=== PATIENT | male | born 1985 | race Caucasian/White ===

== ENCOUNTER 2018-07-15 23:34 | Emergency (ER) | payer OTHER ==
[~2018-07-15] VITALS: Ht 190.5 cm; Wt 124.7 kg
== END 2018-07-16 01:35 | disposition home or self-care (01) ==
LOC: ER 23:34
DX: R07.9 Chest pain, unspecified (principal); Z88.0 Allergy status to penicillin
CPT/HCPCS: 71046; 93005; 93010; 99284-25